=== PATIENT | female | born 1960 | race Caucasian/White ===

== ENCOUNTER 2022-10-03 09:24 | Outpatient (CLI) | payer MEDICAID, SELFPAY ==
[2022-10-03 10:14] LABS: Basophils % 0.6 %; Eosinophils # 0.1 10^3/uL (0.0-0.8); Eosinophils % 1.1 %; Hematocrit 37.4 % (37.0-47.0); Hemoglobin 12.2 g/dL (11.5-15.3); Lymphocytes # 1.4 10^3/uL (0.8-4.8); Lymphocytes % 21.3 %; Mean Corpuscular HGB Conc 32.6 g/dL (30.0-36.0); Mean Corpuscular Hemoglobin 30.2 pg (28.0-34.0); Mean Corpuscular Volume 92.6 fl (81-99); Mean Platelet Volume 8.9 fL (7.4-10.4); Monocytes # 0.5 10^3/uL (0.2-0.9); Monocytes % 8.3 %; Neutrophils # 4.38 10^3/uL (1.8-7.7); Neutrophils % 68.4 %; Nucleated Red Blood Cells % 0 %; Platelet Count 335 10^3/cmm (130-400); Red Blood Count 4.04 10^6/uL (4.1-5.3); Red Cell Distribution Width 13.4 % (12.1-15.1); White Blood Count 6.4 10^3/uL (4.0-10.0)
[2022-10-03 10:39] LABS: Urine Appearance Clear (CLEAR); Urine Color Yellow (Yellow); pH Urine 8 (5-7)
[2022-10-03 10:40] LABS: Add Urine Microscopic? YES; Bilirubin Urine Neg (Negative); Blood Urine Neg (Negative); Glucose Urine UA Norm (Normal); Ketones Urine Negative (Negative); Leukocyte Esterase Urine 1+ (Negative); Nitrate Urine Negative (Negative); Protein Urine Neg (Negative); RBC Urine 0-4 /hpf (0-2); Specific Gravity, Urine 1.005 (1.005-1.030); Urobilinogen Urine Norm (Negative)
[2022-10-03 10:41] LABS: Bacteria Urine 1+ /hpf; Squamous Epithelial Cell Urine RARE /hpf (0-5)
[2022-10-03 10:45] LABS: Alanine Aminotransferase 9 U/L (0-33); Albumin Level 4.4 g/dL (3.5-5.2); Alkaline Phosphatase 61 U/L (35-105); Anion Gap 15.5 (5-19); Aspartate Amino Transferase 16 U/L (0-32); Blood Urea Nitrogen 11 mg/dL (8-23); Calcium 9.4 mg/dL (8.5-10.5); Carbon Dioxide 26 mmol/L (22-29); Chloride 101 mmol/L (98-107); Chol HDL Ratio 2.96 mg/dL (0.0-4.40); Cholesterol 299 mg/dL (0-200); Glomerular Filtration Rate 85.1 mL/min (90-130); Glucose 101 mg/dL (65-115); HDL Cholesterol 101 mg/dL (60-100); LDL Cholesterol Calculated 173 mg/dL (50-129); LDL HDL Ratio 1.71 RATIO (0.00-3.22); Osmolality Calculated 286 mOsm/kg (285-295); Potassium 4.5 mmol/L (3.5-5.1); Sodium 138 mmol/L (136-145); Thyroid Stimulating Hormone 3.63 uIU/mL (0.27-4.20); Total Bilirubin 0.4 mg/dL (0.15-1.2); Total Protein 7.4 g/dL (6.6-8.7); Triglycerides 124 mg/dL (0-150)
[2022-10-03 11:33] LABS: Free T4 Free Thyroxine 1.09 ng/dL (0.82-1.77)
[2022-10-05 13:18] LABS: Quantiferon Mitogen >10.00 IU/mL; Quantiferon Nil 0.11 IU/mL; Quantiferon Plus TB1 0.03 IU/mL; Quantiferon Plus TB2 0.08 IU/mL; Quantiferon TB Gold NEGATIVE (NEGATIVE)
== END 2022-10-03 09:25 | disposition home or self-care (01) ==
PROVIDERS: PCP Family Medicine; Visit Provider Family Medicine
DX: I10 Essential (primary) hypertension (principal); Z11.1 Encounter for screening for respiratory tuberculosis
CPT/HCPCS: 36415; 80053; 80061; 81001; 84439; 84443; 85025; 86480

== ENCOUNTER 2022-10-19 12:52 | Outpatient (CLI) | payer MEDICAID, SELFPAY ==
--- NOTE | 2022-10-19 13:10 | MM_ITS ---
WS: [id number] Bilateral screening 3D tomosynthesis digital mammogram, 10/19/2022 Clinical Data: screening Comparison: None. Findings: The breast parenchymal pattern shows heterogeneous density. No spiculated masses or clustered calcifi cations are seen. There are no secondary signs of carcinoma. MM/[place] [id number] Impression: 1. Negative bilateral mammogram with no prior exam for review.. 2. Recommend annual screening mammograms. BIRADS: 1-Negative FOLLOW UP: 1 Year Follow-up The CAD checkerer hand was used.
== END 2022-10-19 12:53 | disposition home or self-care (01) ==
LOC: RAD 13:00
PROVIDERS: PCP Family Medicine; Visit Provider Family Medicine
DX: Z12.31 Encounter for screening mammogram for malignant neoplasm of breast (principal)
CPT/HCPCS: 77063; 77067

== ENCOUNTER 2022-12-13 08:53 | Outpatient (CLI) | payer OTHER, SELFPAY ==
--- NOTE | 2022-12-13 09:45 | XR_ITS ---
WS: [id number] Left knee, AP and lateral views, 12/13/2022 Clinical Data: PAIN/DECREASED ROM Comparison: None. Findings: No fractures or dislocations are seen. The joint spaces are normal. The patella is intact. The soft t issues are unremarkable. XR/XR knee LT 1-2V [id number] Impression: Negative left knee. Kellgren-Mitesh Classification: grade 0 (none): definite absence of x-ray eleni nges of osteoarthritis
== END 2022-12-13 08:54 | disposition home or self-care (01) ==
PROVIDERS: PCP Family Medicine; Visit Provider Dermatology
DX: M25.562 Pain in left knee (principal); M25.662 Stiffness of left knee, not elsewhere classified
CPT/HCPCS: 73560

== ENCOUNTER 2023-02-07 09:50 | Outpatient (CLI) | payer OTHER, SELFPAY ==
--- NOTE | 2023-02-07 09:58 | XR_ITS ---
WS: [id number] Left hip, 2 views, 02/07/2023 Clinical Data: HIP PAIN, DECREASED ROM/HX OF L HIP SURGERY IN 2019 Comparison: None. Findings: There is a left hip arthroplasty. The arthroplasty components are in good position. No periprosthetic fractures or loosening is seen. There is a calcified fragment adjacent to the lesser trochanter whic h moves with internal and external rotation. Impression: Intact left hip arthroplasty.
== END 2023-02-07 09:51 | disposition home or self-care (01) ==
PROVIDERS: PCP Family Medicine; Visit Provider Dermatology
DX: Z02.71 Encounter for disability determination (principal); M25.552 Pain in left hip; M25.652 Stiffness of left hip, not elsewhere classified; Z98.890 Other specified postprocedural states
CPT/HCPCS: 73502

== ENCOUNTER → 2024-06-10 09:02 | Outpatient (BNVA) | payer MEDICAID, SELFPAY | PROVIDERS: PCP Family Medicine; Visit Provider Family Medicine | DX: E78.5 Hyperlipidemia, unspecified (principal); R00.0 Tachycardia, unspecified | CPT/HCPCS: 80053; 80061; 84439; 84443; 85025 ==

== ENCOUNTER → 2024-09-29 13:58 | Outpatient (BNVA) | payer MEDICAID, SELFPAY | PROVIDERS: PCP Family Medicine; Visit Provider Family Medicine | DX: I10 Essential (primary) hypertension (principal) | CPT/HCPCS: 80053; 80061 ==

== ENCOUNTER 2024-11-11 14:09 | Outpatient (CLI) | payer MEDICAID, SELFPAY ==
--- NOTE | 2024-11-11 14:30 | USCV_ITS ---
Karina Christensen Age: 64 Gender: F : 1960 Exam Date: 11/11/2024 14:42 Ordering Phys: Momo Arevalo MD Technologist: [facility] Exam Location: [facility] – [place], [place] Indication: bruit Risk Factors: Previous Vascular Surgery: Right Brachial BP: / Left Brachial BP: / Right Left Velocity (cm/s) Spectral Plaque Velocity (cm/s) Spectral Plaque Syst/Diast Broadening Syst/Diast Broadening 70.70/ 14.60 Prox CCA 74.40 / 15.60 90.50/ 19.30 Mid CCA 80.40 / 17.30 72.30/ 17.50 Distal CCA 55.10 / 15.20 36.60/ 12.30 Prox ICA 67.30 / 27.90 64.40/ 19.20 Mid ICA 84.50 / 32.60 49.40/ 19.30 Distal ICA 56.80 / 22.20 67.60 ECA 78.40 0.50 ICA/CCA 1.20 Antegrade Vertebral Antegrade 36.70/ 9.90 cm/s 49.30/ 16.50 cm/s Tri Subclavian Tri 74.10 79.10 CONCLUSIONS Right ICA stenosis <50%. Mild atheromatous plaque right carotid bulb/ICA. Left ICA stenosis <50%. Mild atheromatous plaque left carotid bulb/ICA. Intimal thickening in the common carotid arteries and internal carotid arteries bilaterally. Normal antegrade Doppler flow noted in the right vertebral artery. Normal antegrade Doppler flow noted in the left vertebral artery. Prashanth Lopez MD (Electronically Signed) Final Date: 12 November 2024 16:58 S
== END 2024-11-11 14:10 | disposition home or self-care (01) ==
LOC: RAD 14:10
PROVIDERS: PCP Family Medicine; Visit Provider Family Medicine
DX: R09.89 Other specified symptoms and signs involving the circulatory and respiratory systems (principal); I65.23 Occlusion and stenosis of bilateral carotid arteries
CPT/HCPCS: 93880

== ENCOUNTER 2025-01-14 14:22 | Outpatient (CLI) | payer MEDICAID, SELFPAY ==
--- NOTE | 2025-01-14 14:27 | XR_ITS ---
WS: [id number] Pelvis, 2 views of both hips, 01/14/2025 Clinical Data: R hip pain, L hip surgery Comparison: Left hip, 02/07/2023 Findings: The left hip arthroplasty remains in good position. No periprosthetic fractures or loosening is seen. The right hip, SI joints and pubic symphysis are unremarkable. The soft tissues are normal. XR/XR hip BI m 5V wo/w pel* [id number] Impression: 1. Stable left hip arthroplasty. 2. Negative right hip and pelvis.
== END 2025-01-14 14:23 | disposition home or self-care (01) ==
LOC: RAD 14:24
PROVIDERS: PCP Family Medicine; Visit Provider Family Medicine
DX: M16.11 Unilateral primary osteoarthritis, right hip (principal); Z96.642 Presence of left artificial hip joint; N18.31 Chronic kidney disease, stage 3a
CPT/HCPCS: 73523; 80053